=== PATIENT | female | born 1990 | race Caucasian/White ===

== ENCOUNTER 2021-12-03 19:08 | Emergency (ER) | payer MEDICAID, OTHER ==
[~2021-12-03] VITALS: Ht 162.6 cm; Wt 84.4 kg
[~2021-12-03 19:08] MED LIST: [UNRECOGNIZED DRUG - CODE] VG
[2021-12-03 19:14] VITALS: BP 141/108
--- NOTE | 2021-12-03 19:20 | NUR ---
31 y/o female, c/o low back pain radiates to ruq abd area that started today with nause and diarrhea. a&ox4, ambulates with steady gait. lung sounds clear bl, heart sounds even and regular. pt denies any episodes of vomiting or anyone sick at home with same s/s. denies cough, sob, cp, fever, chills. pmh: thyroid disease nka med: denies
[2021-12-03 19:44] LABS: BASOPHILS # (AUTO) 0.1 K/uL (0.00-0.22); EOSINOPHILS # (AUTO) 0.3 K/uL (0-0.4); EOSINOPHILS % (AUTO) 2.2 % (0.0-4.0); HEMATOCRIT 39.4 % (36-48); HEMOGLOBIN 12.9 g/dL (12.0-16.0); LYMPHOCYTES # (AUTO) 2.8 K/uL (2.5-16.5); LYMPHOCYTES % (AUTO) 21.9 % (20.5-51.1); MEAN CORPUSCULAR HEMOGLOBIN 28 pg (27-31); MEAN CORPUSCULAR HGB CONC 33 g/dL (33-37); MEAN CORPUSCULAR VOLUME 86.7 fL (80-94); MONOCYTES % (AUTO) 7.9 % (1.7-9.3); NEUTROPHILS # (AUTO) 8.6 K/uL (1.8-7.7); PLATELET COUNT (AUTO) 324 K/uL (140-450); RED BLOOD CELL COUNT(AUTO) 4.54 MIL/uL (4.20-5.40); RED CELL DISTRIBUTION WIDTH 13.3 % (11.6-13.7); WHITE BLOOD COUNT (AUTO) 12.8 K/uL (4.8-10.8)
[2021-12-03 20:03] LABS: ALBUMIN 4.1 g/dL (3.4-5.0); CARBON DIOXIDE 25.7 mmol/L (21-32); CREATININE 0.9 mg/dL (0.6-1.3); POTASSIUM 3.7 mmol/L (3.5-5.1); TOTAL BILIRUBIN 0.2 mg/dL (0.0-1.0)
[2021-12-03] MEDS ORDERED: KETOROLAC 30 MG/ML VIAL IM ONE (22:35)
[2021-12-03] MEDS ORDERED: HYDROcodone/APAP 5/325 MG 1 TAB TAB PO ONE (22:35)
--- NOTE | 2021-12-03 22:35 | NUR ---
MD OCAMPO AT BEDSIDE
[2021-12-03 23:08] LABS: APPEARANCE,URINE SL CLOUDY (CLEAR); BILIRUBIN,URINE NEGATIVE (NEGATIVE); BLOOD, URINE NEGATIVE (NEGATIVE); COLOR,URINE YELLOW (YELLOW); LEUKOCYTE ESTERASE ,URINE 3+ (NEGATIVE); NITRITE, URINE NEGATIVE (NEGATIVE); UGLUCOSE NEGATIVE (NEGATIVE)
--- NOTE | 2021-12-03 23:09 | NUR ---
DAY CARRION. AWARE.
[2021-12-03] MEDS ORDERED: ACETAMINOPHEN EXTRA STRENGTH 500 MG TAB PO ONE (23:15)
--- NOTE | 2021-12-03 23:46 | NUR ---
PATIENT PAIN DECREASED TO 3/10. TOLERABLE.
--- NOTE | 2021-12-04 00:31 | NUR ---
PATIENT AMBULATED TO AND BACK TO BED
[2021-12-04] MEDS ORDERED: cefTRIAXone 1,000 MG in LIDOCAINE MPF 1% 2.1 ML IM ONE (00:35)
[2021-12-04] MEDS ORDERED: NAPR-54 PO (00:50)
[2021-12-04] MEDS ORDERED: CEPH-588 PO (00:50)
--- NOTE | 2021-12-04 01:04 | NUR ---
Dr. Plasencia examining patient.
[2021-12-04 01:05] VITALS: BP 130/75
--- NOTE | 2021-12-04 01:05 | NUR ---
Patient discharged with v/s stable. Written and verbal after care instructions given UTI and explained. Patient alert, oriented and verbalized understanding of instructions. Ambulatory with steady gait. All questions addressed prior to discharge. ID band removed. Patient advised to follow up with PMD. Rx of KEFLEX, NAPROXEN given.
--- NOTE | 2021-12-04 01:12 | NUR ---
The patient's care was reviewed and supervised by Bernice Mccallum RN.
== END 2021-12-04 01:05 | disposition home or self-care (01) ==
LOC: MED 19:08
DX: N39.0 Urinary tract infection, site not specified (principal); R19.7 Diarrhea, unspecified; Z86.39 Personal history of other endocrine, nutritional and metabolic disease; Z79.1 Long term (current) use of non-steroidal anti-inflammatories (NSAID); Z79.899 Other long term (current) drug therapy; Z79.2 Long term (current) use of antibiotics
CPT/HCPCS: 36415; 80053; 81003; 81025; 83690; 85025; 87086; 96372; 99283; J1885